=== PATIENT | female | born 1950 | race Caucasian/White ===

== ENCOUNTER 2018-02-05 11:46 | Inpatient (IN) | payer OTHER ==
[~2018-02-05] VITALS: Ht 160 cm; Wt 123.4 kg
[~2018-02-05 11:46] MED LIST: ENALAPRIL MALE2.5 MG; GLIPIZIDE2.5 MG/BO1; HUMULIN N100 U/ML SQ; HUMULIN R500 U/ML IJ; METFORMIN HCL500 MG; NEURONTIN300 MG PO; PENTOXIFYLLINE400 MG PO
[2018-02-09] MEDS ORDERED: PERCOCET 5-3251 EACH PO (17:06)
== END 2018-02-09 16:43 | disposition home or self-care (01) | DRG 300 ==
LOC: ER 11:46 → MEDJ 17:53
PROC: B44HZZZ Ultrasonography of Bilateral Lower Extremity Arteries (ICD-10-PCS; principal; 2018-02-06)
PROC: B54DZZZ Ultrasonography of Bilateral Lower Extremity Veins (ICD-10-PCS; 2018-02-06)
DX: E11.51 Type 2 diabetes mellitus with diabetic peripheral angiopathy without gangrene (principal); L97.518 Non-pressure chronic ulcer of other part of right foot with other specified severity; E11.621 Type 2 diabetes mellitus with foot ulcer; E11.65 Type 2 diabetes mellitus with hyperglycemia; I10 Essential (primary) hypertension; E11.42 Type 2 diabetes mellitus with diabetic polyneuropathy; I87.2 Venous insufficiency (chronic) (peripheral)